=== PATIENT | female | born 1970 | race African-American/Black ===

== ENCOUNTER 2019-10-18 11:05 | Observation (INO) | payer OTHER ==
[~2019-10-18] VITALS: Ht 161.3 cm; Wt 92.5 kg
[~2019-10-18 11:05] MED LIST: MELOXICAM15 M1 PO
[2019-10-18 12:25] VITALS: BP 134/80
[2019-10-18 19:06] VITALS: BP 110/65
[2019-10-18 19:13] VITALS: Ht 161.3 cm; Wt 92.5 kg
[2019-10-18 20:58] VITALS: BP 118/56
[2019-10-19 05:41] VITALS: BP 122/55
[2019-10-19 07:18] LABS: CALCIUM 8.2 mg/dL (8.5-10.1); CARBON DIOXIDE 29.1 mmol/L (21-32); CHLORIDE SERUM 102 mmol/L (98-107); CREATININE SERUM 0.9 mg/dL (0.6-1.0); GFR1 > 60 mL/min; GLUCOSE SERUM 108 mg/dL (74-106); SODIUM SERUM 137 mmol/L (136-145)
[2019-10-19 07:20] LABS: BASOPHIL % 0.1 % (0-2); PLATELET COUNT 251 x10^3mcL (130-400); RED CELL DISTRIBUTION WIDTH 14.2 % (11.5-14.5)
[2019-10-19 08:47] VITALS: BP 103/50
[2019-10-19 12:43] VITALS: BP 103/50
== END 2019-10-19 14:10 | disposition home or self-care (01) ==
LOC: DS 11:05 → OR 13:30 → MU 17:33
PROVIDERS: ADMIT Orthopaedic Surgery; ATTEND Orthopaedic Surgery
DX: M17.11 Unilateral primary osteoarthritis, right knee (principal)
CPT/HCPCS: 97116-GP; 97530-GP; G0378; J0690; J1170; J1885; J2270; J2274; J3490; J7120; Q0092